=== PATIENT | female | born 1950 | race Caucasian/White ===

== ENCOUNTER → 2019-04-10 | Outpatient (CLI) | payer MEDICARE ==
--- NOTE | 2019-04-10 11:02 | Diagnostic Imaging Report ---
CLINICAL INDICATION: Patient states that he has frontal pain on right side for 2 years. Patient states that it comes and goes. EXAM: Axial CT scan of the brain performed without IV contrast. COMPARISON: None. FINDINGS: There is no evidence of acute cerebral infarct, intracranial hemorrhage, or gross mass effect. The brain parenchymal volume appears appropriate for patient's age. There is normal andrade-white matter distinction. There is no significant midline shift or herniation. There is no evidence of hydrocephalus. The basal cisterns are unremarkable. The skull, extracranial soft tissue, and orbits are unremarkable. The paranasal sinuses are unremarkable. Temporal bones show no significant abnormality. IMPRESSION: Unremarkable CT scan of the brain. Dictated by: Dictated on workstation # [id number]
== END ==
LOC: RAD FS 10:35
PROVIDERS: ATTEND Family Medicine
DX: J32.1 Chronic frontal sinusitis (principal)
CPT/HCPCS: 70450

== ENCOUNTER 2019-05-31 15:54 | Emergency (ER) | payer MEDICARE ==
[~2019-05-31] VITALS: Ht 167 cm; Wt 61.4 kg
--- OUTSIDE RECORDS SUMMARY | 2019-05-31 16:07 | XMS REPORT ---
Author Author Saumya MAJOR Organization [facility] Address Unknown Care Team Providers Care Generator Switchboard Operator Name Role Phone GIANA MAJOR Unavailable PROBLEMS Unknown Problems ALLERGIES Substance Reaction Event Type Date Status Penicillin V Potassium Unknown Drug Allergy May, Activ e Codeine Sulfate Unknown Drug Allergy May, Active eggs Unknown Non Drug Allergy May, Active ENCOUNTERS Encounter Location Date Diagnosis [facility] [id number] [place] [phone] May, Dental examination Z01.20 [facility] [id number] [place] [phone] Sep, Dental examination Z01.20 IMMUNIZATIONS No Known Immunizations SOCIAL HISTORY Never Assessed REASON FOR VISIT filling PLAN OF CARE Activity Details Follow Up prn Reason:DESI VITAL SIGNS Blood pressure systolic 148 mmHg 2017-05-31 Blood pressure diastolic 78 mmHg 2017-05-31 MEDICATIONS Medication Instructions Dosage Frequency Start Date End Date Duration S tatus Naproxen Active [place] Active Turmeric Curcumin Active Coconut Oil Active Vitamin D Active Depakote Active Multivitamin Active Vitamin E Active Zolpidem Tartrate ER Act rené Cats Claw Active RESULTS No Results PROCEDURES Procedure Date Ordered Result Body Site RESIN COMPOS - 2 SURFACES POSTERIOR May 31, 2017 INSTRUCTIONS MEDICATIONS ADMINISTERED No Known Medications MEDICAL (GENERAL) HISTORY Type Description Date Medical History vulvar cancer [id number] Medical History gallbladder removal 2011 Medical History eye lense replacement 2011 Medical History tumor in big toe right foot 2010 Medical History neck injury Medical History back trouble Medical History prednisone Surgical History gall bladder 2011 Surgical History hysterectomy 1984
--- OUTSIDE RECORDS SUMMARY | 2019-05-31 16:07 | XMS REPORT | Continuity of Care Document ---
Author Organization Unknown Address Unknown Phone Unavailable Allergies There is no data. Medications There is no data. Problems Date Dx Coded Attending Type Code Diagnosis Diagnosed By 04/11/2019 SELF IVAN MIRANDA Ot J32.1 CHRONIC FRONTAL SINUSITIS 04/15/2019 SELF VIAN MIRANDA Ot J32.1 CHRONIC FRONTAL SINUSITIS 04/15/2019 SELF IVAN MIRANDA Ot J32.1 CHRONIC FRONTAL SINUSITIS Procedures There is no data. Results Test Result Range CBC - 05/27/19 16:44 WHITE BLOOD CELL COUNT 7.6 Thousand/uL 3 .8-10.8 RED BLOOD CELL COUNT 4.59 Million/uL 3.8 0-5.10 HEMOGLOBIN 13.6 g/dL 11.7-15.5 HEMATOCRIT 40.1 % 35.0-45.0 MCV 87.4 fL 80.0-100.0 MCH 29.6 pg 27.0-33.0 MCHC 33.9 g/dL 32.0-36.0 RDW 13.3 % 11.0-15.0 PLATELET COUNT 238 Thousand/uL 140-400 MPV 10.6 fL 7.5-12.5 ABSOLUTE NEUTROPHILS 6171 cells/uL 1500- 7800 ABSOLUTE LYMPHOCYTES 859 cells/uL 850-39 00 ABSOLUTE MONOCYTES 479 cells/uL 200-950 ABSOLUTE EOSINOPHILS 84 cells/uL 15-500 ABSOLUTE BASOPHILS 8 cells/uL 0-200 NEUTROPHILS 81.2 % NRG LYMPHOCYTES 11.3 % NRG MONOCYTES 6.3 % NRG EOSINOPHILS 1.1 % NRG BASOPHILS 0.1 % NRG CMP - 05/27/19 16:44 GLUCOSE 104 mg/dL 65-99 UREA NITROGEN (BUN) 9 mg/dL 7-25 CREATININE 0.83 mg/dL 0.50-0.99 eGFR NON-AFR. MEXICAN 73 mL/min/1.73m2 > OR = 60 eGFR 85 mL/min/1.73m2 > OR = 60 BUN/CREATININE RATIO NOT APPLICABLE (calc) 6-22 SODIUM 140 mmol/L 135-146 POTASSIUM 3.9 mmol/L 3.5-5.3 CHLORIDE 106 mmol/L 98-110 CARBON DIOXIDE 24 mmol/L 20-32 CALCIUM 8.6 mg/dL 8.6-10.4 PROTEIN, TOTAL 6.2 g/dL 6.1-8.1 ALBUMIN 3.9 g/dL 3.6-5.1 GLOBULIN 2.3 g/dL (calc) 1.9-3.7 ALBUMIN/GLOBULIN RATIO 1.7 (calc) 1.0-2. 5 BILIRUBIN, TOTAL 0.6 mg/dL 0.2-1.2 ALKALINE PHOSPHATASE 96 U/L 37-153 AST 27 U/L 10-35 ALT 23 U/L 6-29 Encounters ACCT No. Visit Date/Time Discharge Status Pt. Type Provider Facility Loc./Unit Complaint [id number] 03/27/2019 10:00:00 03/27/2019 23:59: 59 CLS Outpatient SELF, IVAN Moseley [facility] [id number] 05/27/2019 16:00:00 Document Registration [id number] 04/10/2019 10:35:00 020 23:59:59 CLS Outpatient SELF IVAN MIRANDA [facility] RAD FS J32.1 [id number] 05/31/2019 15:56:[address] Emergency ANDRAE PINON DO Via [facility] ER FS ANAL BLEEDING
--- OUTSIDE RECORDS SUMMARY | 2019-05-31 16:07 | XMS REPORT ---
Author Author Saumya GERMAN [facility] Address [address] [place] [address] Care Team Providers Care Diesel Pile Hammer Operator Name Role Phone IVAN GERMAN Unavailable PROBLEMS Type Condition ICD9-CM Code UIQ94-HD Code Onset Dates Condition S tatus SNOMED Code Problem Vulvar cancer, carcinoma C51.9 Activ e 545336699 Problem COPD (chronic obstructive pulmonary disease) J44.9 Active 93238758 Problem Tobacco abuse Z72.0 Active 791478 05 Problem Cervical pain M54.2 Active 361422 05 Problem Colon polyp K63.5 Active 68919375 Problem Lumbar back pain M54.5 Active 279 335894 Problem Chronic back pain M54.9 Active 13 [id number] ALLERGIES No Information ENCOUNTERS Encounter Location Date Diagnosis [address] [address] May, Acute recurrent maxillary sinusitis J01. [address] [address] May, [address] [address] May, [address] [address] Apr, [address] [address] Apr, COPD (chronic obstructive pulmonary dise ase) J44.9 and Chronic back pain M54.9 [facility] [id number] [place] [phone] May, Dental examination Z01.20 [facility] [address] [id number] [address] [place] [phone] Sep, Dental examination Z01.20 IMMUNIZATIONS No Known Immunizations SOCIAL HISTORY Never Assessed REASON FOR VISIT Ambien refill PLAN OF CARE VITAL SIGNS MEDICATIONS Medication Instructions Dosage Frequency Start Date End Date Duration S luke Ambien 10 MG Orally Once a day 1 tablet at bedtime as needed 24h 30 days Active RESULTS No Results PROCEDURES No Known procedures INSTRUCTIONS MEDICATIONS ADMINISTERED No Known Medications MEDICAL (GENERAL) HISTORY Type Description Date Medical History Vulvar cancer, carcinoma Medical History Cervical pain Medical History Lumbar back pain Medical History Colon polyp Medical History Tobacco abuse Medical History COPD (chronic obstructive pulmonary dise ase) Medical History Chronic back pain Surgical History hysterectomy 1983 Surgical History cholecystectomy 2011 Surgical History cataract-lens implants 2011 Surgical History colonoscopy 06/2013
--- NOTE | 2019-05-31 16:29 | ED GI ---
General Chief Complaint: Rect Problems Stated Complaint: ANAL BLEEDING Nursing Triage Note: PT HAD SOME VOMITING AND DIARRHEA LAST PM AND HAS HAD THIS HAPPEN IN THE PAST. SHE REPORTS TAKING PEPTO BISMOL YESTERDAY. THE CLINIC PHONE PERSONEL SENT HER TO THE ER FOR RECTAL BLEEDING. Sepsis Screen: No Definite Risk History of Present Illness Date Seen by Provider: May 31, 2019 Time Seen by Provider: 16:20 Initial Comments Patient complains of abdominal pain with black diarrhea massive and quantity last p.m. vomiting but no blood. The patient's had a long history of worsening GI symptoms with intermittent diarrhea and vomiting food is poorly digested it stays in for hours and comes out undigested with epigastric pain. She has strong use history of Naprosyn for chronic back issues had no fever no weight change no other significant health issues that she admits to no diabetes. Patient did admit to taking Pepto-Bismol last p.m. but only took recommended amount and this had significant and repeated black bowel movements Timing/Duration: Intermittent Severity/Quality: Moderate Location: Generalized Abdomen Radiation: No Radiation Activities at Onset: Other (evening) Modifying Factors: Improves With Antacids Associated Symptoms: Nausea/Vomiting Allergies and Home Medications Patient Home Medication List Home Medication List Reviewed: Yes Review of Systems Review of Systems Constitutional: no symptoms reported EENTM: No Symptoms Reported Respiratory: No Symptoms Reported Cardiovascular: No Symptoms Reported Gastrointestinal: See HPI Genitourinary: No Symptoms Reported Musculoskeletal: back pain Skin: no symptoms reported Psychiatric/Neurological: No Symptoms Reported Endocrine: No Symptoms Reported Past Vgdcszr-Sfyeun-Eqlbhm Hx Past Med/Social Hx: Reviewed Nursing Past Med/Soc Hx Patient Social History Alcohol Use: Denies Use Recreational Drug Use: No Smoking Status: Never a Smoker 2nd Hand Smoke Exposure: No Recent Foreign Travel: No Contact w/Someone Who Travel: No Recent Infectious Disease Expo: No Recent Hopitalizations: No Physical Abuse: No Sexual Abuse: No Mistreated: No Fear: No Seasonal Allergies Seasonal Allergies: No Past Medical History Surgeries: Yes Appendectomy, Gallbladder, Hysterectomy, Tonsillectomy Respiratory: No Cardiac: No Neurological: No Genitourinary: No Gastrointestinal: No Musculoskeletal: No Endocrine: No HEENT: No Cancer: No Integumentary: No Blood Disorders: No Physical Exam Vital Signs Vital Signs - First Documented 05/31/19 16:05 Temp 36.8 Pulse 80 Resp 20 B/P (MAP) 119/98 (105) Pulse Ox 98 O2 Delivery Room Air Capillary Refill : Less Than 3 Seconds Height/Weight/BMI Height: '" Weight: lbs. oz. kg; 22.00 BMI Method: General Appearance: WD/WN, no apparent distress HEENT: PERRL/EOMI, pharynx normal; No pale conjunctivae (R), No pale conjunctivae (L) Neck: non-tender, full range of motion, supple, normal inspection Respiratory: chest non-tender, lungs clear, normal breath sounds, no respiratory distress Cardiovascular: normal peripheral pulses, regular rate, rhythm, no edema, no gallop Gastrointestinal: normal bowel sounds, tenderness (mild diffuse) Extremities: normal range of motion, non-tender, normal inspection Neurologic/Psychiatric: video production engineer II-XII nml as tested, no motor/sensory deficits, alert, normal mood/affect, oriented x 3 Skin: normal color, warm/dry Progress/Results/Core Measures Results/Orders Lab Results Laboratory Tests Test 05/31/19 16:30 05/31/19 16:48 Range/Units White Blood Count 7.8 4.3-11.0 10^3/uL Red Blood Count 4.52 4.35-5.85 10^6/uL Hemoglobin 13.7 11.5-16.0 G/DL Hematocrit 39 35-52 % Mean Corpuscular Volume 86 80-99 FL Mean Corpuscular Hemoglobin 30 25-34 PG Mean Corpuscular Hemoglobin Concent 35 32-36 G/DL Red Cell Distribution Width 13.0 10.0-14.5 % Platelet Count 303 130-400 10^3/uL Mean Platelet Volume 9.8 7.4-10.4 FL Neutrophils (%) (Auto) 56 42-75 % Lymphocytes (%) (Auto) 30 12-44 % Monocytes (%) (Auto) 12 0-12 % Eosinophils (%) (Auto) 2 0-10 % Basophils (%) (Auto) 0 0-10 % Neutrophils # (Auto) 4.4 1.8-7.8 X 10^3 Lymphocytes # (Auto) 2.3 1.0-4.0 X 10^3 Monocytes # (Auto) 0.9 0.0-1.0 X 10^3 Eosinophils # (Auto) 0.2 0.0-0.3 10^3/uL Basophils # (Auto) 0.0 0.0-0.1 10^3/uL Sodium Level 141 135-145 MMOL/L Potassium Level 3.3 L 3.6-5.0 MMOL/L Chloride Level 101 98-107 MMOL/L Carbon Dioxide Level 27 21-32 MMOL/L Anion Gap 13 5-14 MMOL/L Blood Urea Nitrogen 10 7-18 MG/DL Creatinine 0.90 0.60-1.30 MG/DL Estimat Glomerular Filtration Rate > 60 BUN/Creatinine Ratio 11 Glucose Level 108 H 70-105 MG/DL Calcium Level 8.7 8.5-10.1 MG/DL Corrected Calcium 8.8 8.5-10.1 MG/DL Total Bilirubin 0.8 0.1-1.0 MG/DL Aspartate Amino Transf (AST/SGOT) 31 5-34 U/L Alanine Aminotransferase (ALT/SGPT) 31 0-55 U/L Alkaline Phosphatase 81 40-136 U/L Total Protein 7.0 6.4-8.2 GM/DL Albumin 3.9 3.2-4.5 GM/DL Lipase 23 8-78 U/L Urine Color DARK YELLOW Urine Clarity CLEAR Urine pH 5.5 5-9 Urine Specific [place] 1.020 1.016-1.022 Urine Protein NEGATIVE NEGATIVE Urine Glucose (UA) NEGATIVE NEGATIVE Urine Ketones NEGATIVE NEGATIVE Urine Nitrite NEGATIVE NEGATIVE Urine Bilirubin 1+ H NEGATIVE Urine Urobilinogen 1.0 < = 1.0 MG/DL Urine Leukocyte Esterase TRACE H NEGATIVE Urine RBC (Auto) NEGATIVE NEGATIVE Urine RBC NONE /HPF Urine WBC 5-10 H /HPF Urine Squamous Epithelial Cells 5-10 /HPF Urine Crystals NONE /LPF Urine Bacteria FEW H /HPF Urine Casts NONE /LPF Urine Mucus MODERATE H /LPF Urine Culture Indicated YES My Orders Orders - ANDRAE PINON DO Comprehensive Metabolic Panel (05/31/19 16:29) Lipase (05/31/19 16:29) Ua Culture If Indicated (05/31/19 16:29) Ed Iv/Invasive Line Start (05/31/19 16:29) Cbc With Automated Diff (05/31/19 16:29) Urine Culture (05/31/19 16:48) Vital Signs/I&O 05/31/19 05/31/19 05/31/19 05/31/19 16:05 16:30 16:42 17:03 Temp 36.8 Pulse 80 83 86 83 86 92 Resp 20 B/P (MAP) 119/98 (105) 130/46 (74) 121/69 (86) 130/46 (74) 121/69 (86) 122/77 (92) Pulse Ox 98 O2 Delivery Room Air Blood Pressure Mean: 105 Progress Progress Note : Time: 16:28 Progress Note Patient has long-standing history of GI problems in our black diarrhea some dizziness and vomiting particularly of undigested food. Differential would include gastroparesis. We'll bowel syndrome esophageal obstruction esophageal cancer pancreatic cancer. Plan will be stool Hemoccult laboratory screenings CAT scan screening in the abdomen follow is okay hemodynamic stable will provide GI referral for endoscopy upper and lower. Initial ECG Impression Date: May 31, 2019 Critical Care Note Critical Care Start Time: 16:27 Departure Impression Primary Impression: Vomiting and diarrhea Disposition: 01 HOME, SELF-CARE Condition: Improved Departure-Patient Inst. Referrals: SELF,IVAN MIRANDA (PCP/Family) Primary Care Physician Add. Discharge Instructions: All discharge instructions reviewed with patient and/or family. Voiced understanding. ANDRAE PINON DO May 31, 2019 16:29
[2019-05-31 16:30] VITALS: BP 130/46
[2019-05-31 16:36] LABS: HEMATOCRIT 39 % (35-52); HEMOGLOBIN 13.7 G/DL (11.5-16.0); MEAN CORPUSCULAR HEMOGLOBIN 30 PG (25-34); MEAN CORPUSCULAR VOLUME 86 FL (80-99); WHITE BLOOD COUNT 7.8 10^3/uL (4.3-11.0)
[2019-05-31 16:37] LABS: BASOPHILS % (AUTO) 0 % (0-10); EOSINOPHILS # (AUTO) 0.2 10^3/uL (0.0-0.3); EOSINOPHILS % (AUTO) 2 % (0-10); LYMPHOCYTES # (AUTO) 2.3 X 10^3 (1.0-4.0); LYMPHOCYTES % (AUTO) 30 % (12-44); MEAN CORPUSCULAR HGB CONC 35 G/DL (32-36); MEAN PLATELET VOLUME 9.8 FL (7.4-10.4); MONOCYTES # (AUTO) 0.9 X 10^3 (0.0-1.0); MONOCYTES % (AUTO) 12 % (0-12); NEUTROPHILS # (AUTO) 4.4 X 10^3 (1.8-7.8); NEUTROPHILS % (AUTO) 56 % (42-75); PLATELET COUNT 303 10^3/uL (130-400)
[2019-05-31 16:42] VITALS: BP 121/69
[2019-05-31 17:00] LABS: CLARITY,URINE CLEAR; COLOR,URINE DARK YELLOW; GLUCOSE, URINE (UA) NEGATIVE (NEGATIVE); KETONES,URINE NEGATIVE (NEGATIVE); LEUKOCYTE ESTERASE ,URINE TRACE (NEGATIVE); NITRITE,URINE NEGATIVE (NEGATIVE); PH,URINE 5.5 (5-9); PROTEIN,URINE NEGATIVE (NEGATIVE)
[2019-05-31 17:01] LABS: BACTERIA,URINE FEW /HPF; BILIRUBIN,URINE 1+ (NEGATIVE)
[2019-05-31 17:02] LABS: ALANINE AMINOTRANSFERASE 31 U/L (0-55); ALBUMIN 3.9 GM/DL (3.2-4.5); ALKALINE PHOSPHATASE 81 U/L (40-136); BILIRUBIN,TOTAL 0.8 MG/DL (0.1-1.0); BUN/CREATININE RATIO 11; CALCIUM 8.7 MG/DL (8.5-10.1); CARBON DIOXIDE 27 MMOL/L (21-32); CHLORIDE 101 MMOL/L (98-107); GFR ESTIMATED > 60; GLUCOSE 108 MG/DL (70-105); LIPASE 23 U/L (8-78); POTASSIUM 3.3 MMOL/L (3.6-5.0); SODIUM 141 MMOL/L (135-145)
[2019-05-31 17:03] VITALS: BP_SYST 121; BP_SYST 122; BP_SYST 130; BP_DIAS 46; BP_DIAS 69; BP_DIAS 77
[2019-05-31 17:25] VITALS: BP 122/77
== END 2019-05-31 17:23 | disposition home or self-care (01) ==
LOC: EDUNIT# 15:54 → ER FS 15:56
DX: R19.7 Diarrhea, unspecified (principal); R11.10 Vomiting, unspecified
CPT/HCPCS: 36415; 80053; 81000; 82274; 83690; 85025; 87088

== ENCOUNTER → 2019-07-10 | Outpatient (CLI) | payer MEDICARE ==
[~2019-07-10] MED LIST: CATHETER FLUSH 10 ML SYR IV PRN; HOLD METFORMIN - RECEIVED CONTRAST 20 ML VIAL IV SCH; IOHEXOL 350 MG/ML 100 ML (OMNIPAQUE 350) VIAL IV ONE; NS 100 ML (IVPB) BAG IV ONE
[2019-07-10 11:36] LABS: BILIRUBIN,TOTAL 0.3 MG/DL (0.1-1.0); CALCIUM 9.3 MG/DL (8.5-10.1); CREATININE SERUM 1.01 MG/DL (0.60-1.30); POTASSIUM 4.4 MMOL/L (3.6-5.0)
[2019-07-10 11:37] LABS: ALBUMIN 4.1 GM/DL (3.2-4.5); TOTAL PROTEIN 6.8 GM/DL (6.4-8.2)
--- NOTE | 2019-07-10 12:26 | Diagnostic Imaging Report ---
PROCEDURE: CT abdomen and pelvis with contrast. TECHNIQUE: Multiple contiguous axial images were obtained through the abdomen and pelvis after administration of intravenous contrast. Auto Exposure Controls were utilized during the CT exam to meet ALARA standards for radiation dose reduction. INDICATION: Abdominal pain with diarrhea and vomiting for 2 to 3 months. No prior studies are available for comparison. FINDINGS: Lung bases are clear apart from a tiny subpleural nodule in the posterior lateral left lower lobe. No discrete liver mass is detected. Gallbladder is surgically absent. Extra hepatic bile duct is prominent measuring up to 12 mm in diameter, however this could be owing to post cholecystectomy. The pancreas and spleen are unremarkable. No adrenal mass is detected. Right kidney contains a 3 cm cyst in the upper pole. The left kidney is unremarkable. Aorta is non-aneurysmal. No central retroperitoneal or mesenteric lymphadenopathy is identified. Bowel loops are normal caliber. There is no obstruction. There is moderate stool within the right colon as well as transverse colon suggestive of constipation. There is diverticulosis of the descending and sigmoid colon but no evidence of acute diverticulitis. The bladder is decompressed. The uterus is surgically absent. No free fluid or fluid collection is identified. IMPRESSION: 1. 3 cm right renal cyst. 2. Uncomplicated diverticulosis. There is moderate stool in the colon suggestive of constipation. No acute feature is detected. Dictated by: Dictated on workstation # [id number]
== END ==
LOC: RAD FS 10:18
PROVIDERS: ATTEND Family Medicine
DX: N28.1 Cyst of kidney, acquired (principal); K57.30 Diverticulosis of large intestine without perforation or abscess without bleeding; R11.2 Nausea with vomiting, unspecified; R12 Heartburn; R07.81 Pleurodynia
CPT/HCPCS: 36415; 74177; 80053